=== PATIENT | male | born 1985 | race Caucasian/White ===

== ENCOUNTER 2020-03-28 19:14 | Emergency (ER) | payer OTHER, SELFPAY ==
[2020-03-28 19:34] VITALS: BP 140/90; PULSE 90; RESP 18; TEMP 36.8; O2SAT 100; BMI 20.9
--- NOTE | 2020-03-28 19:47 | ED_ITS ---
HPI - Psych General Chief Complaint: Psychiatric Symptoms Stated Complaint: SUBSTANCE ABUSE Time Seen by Provider: 03/28/20 19:35 Source: patient Mode of arrival: ambulatory Limitations: no limitations History of Present Illness HPI Narrative: Patient brought to the ED because he wants to stop taking drugs. Patient admits to taking PCP, heroin, and Suboxone the same time. Patient reports vague SI. Patient denies any auditory/visual hallucinations. Patient is seeking detox. Related Data Allergies Allergy/AdvReac Type Severity Reaction Status Date / Time No Known Allergies Allergy Unverified 12/03/19 17:03 [No Known Allergies*] Review of Systems Review of Systems: Yes all other systems are reviewed and are negative Constitutional: Constitutional: Reports as per HPI and Reports no additional constitutional complaints Eyes: Eyes: Reports as per HPI and Reports no additional eye complaints ENT: Reports system reviewed and no additional complaints, except as documented and Reports as per HPI Cardiovascular: Cardiovascular: Reports as per HPI and Reports no additional cardiovascular complaints Respiratory: Respiratory: Reports as per HPI and Reports no additional respiratory complaints Gastrointestinal: Gastrointestinal: Reports as per HPI and Reports no additional gastrointestinal complaints Genitourinary: Genitourinary: Reports no additional male genitourinary complaints and Reports as per HPI Musculoskeletal: Musculoskeletal: Reports no additional musculoskeletal complaints and Reports as per HPI Neurologic: Reports system reviewed and no additional complaints, except as do cumented and Reports as per HPI Psychiatric: Psychiatric: Reports no additional psychiatric complaints and Reports as per HPI Comments: Vague SI PMFSH Past Medical History Medical History (Updated 03/28/20 @ 23:40 by JONNA Mejía) Drug abuse Social History Social History Alcohol intake: current Smoking Status: Current every day smoker Use of substances other than those prescribed or required for medical reasons: Yes Substance Use Type: Opiates, Prescription Drugs, Sedatives and Unknown Advance Directives: No Advance Directives Information Provided: Yes Physical Exam Vital Signs: Vital Signs: Last Vital Signs Temp 98.2 F 03/28/20 19:34 Pulse 90 03/28/20 19:34 Resp 18 03/28/20 20:00 BP 140/90 H 03/28/20 19:34 Pulse Ox 100 03/28/20 20:00 Body Mass Index 20.9 Const: General: cooperative, healthy appearing, comfortable, no acute distress, well developed, alert, awake and Physically active Orientation/consciousness: patient oriented x3 HENMT: Head: Yes normal to inspection, Yes No palpable skull fracture present, Yes normocephalic and Yes atraumatic Eyes: General: appearance normal, both eyes and all related structures Neck: Neck: Yes normal visual inspection, Yes full ROM, Yes no lymp hadenopathy, Yes no meningeal signs, Yes trachea midline, Yes supple and No tender Chest: Chest palpation & inspection: normal inspection of the chest and normal palpation of entire chest wall Resp: Effort & Inspection: normal respiratory effort and able to speak in complete sentences Auscultation: clear to auscultation bilaterally Cardio: Jugular venous distension: no JVD Heart sounds: S1 normal heart sound present and S2 normal heart sound present GI: Inspection: Yes normal to inspection and No abdominal wall ecchymosis Palpation (GI): Soft to palpation, not firm, nontender, no guarding and not rigid : General: No CVA tenderness and Yes no CVA tenderness Back/Spine/Pelvis: Back: no CVA tenderness, No CVA tenderness and No back tenderness Skin: General skin exam: no rashes or lesions noted and elasticity normal Neuro: General: patient oriented x3, gait normal, no meningeal signs and CN's II-XI intact bilaterally Cranial nerves: Yes CN's II-XII intact bilaterally Extrem: General: Yes normal to inspection and Yes full ROM Psych: Other: Flat affect with vague SI. Appearance: grossly normal, well kempt and not disheveled Course Course Course Narrative: Patient will have labs drawn and possibly N evaluation or care team consulted for evaluation. Reevaluation(s) Reevaluation #1: Patient labs came back normal and at baseline. Patient evaluated by care team consulted Yuliana. She states patient is safe for discharge and is not suicidal or homicidal. She states patient has a bed for [facility] detox program in the morning. Patient is not suicidal or homicidal presently. Time: 23:37 MDM - Psych MDM Narrative Medical decision making narrative: Poly substance abuse Restraints Face to Face Assessment: Face to Face Assessment: Current Situation: After assessment of the patient, a review of the pertinent medical record and a discussion with nursing staff, I feel the patient requires a restrain intervention. Reaction To: [] Medical Condition: [] Behavioral State: [] Continued Need: [] Lab Data Result diagrams: 03/28/20 19:54 03/28/20 19:54 Labs: Lab Results 03/28/20 03/28/20 03/28/20 Range/Units 19:54 19:54 19:54 WBC 6.2 (4.8-10.8) X10*3/uL RBC 4.59 L (4.60-5.80) X10*6/uL Hgb 14.9 (14.0-18.0) g/dl Hct 44.7 (42-52) % MCV 97.4 (80-98) fL MCH 32.5 (27.0-33.0) pg MCHC 33.3 (31.0-36.0) g/dl RDW 12.7 (11.0-16.0) % Plt Count 240 (160-400) X10*3/uL MPV 10.1 (9.4-12.4) fL Immature Gran % (Auto) 0.2 (0.0-0.4) % Neut % (Auto) 70.8 (45-73) % Lymph % (Auto) 15.3 L (20-40) % [place] % (Auto) 10.8 (2-11) % Eos % (Auto) 2.6 (0-4) % Baso % (Auto) 0.3 (0-2) % Lymph # (Auto) 1.0 L (1.2-4.9) X10*3/uL [place] # (Auto) 0.7 (0.1-1.2) X10*3/uL Eos # (Auto) 0.2 (0.0-0.4) X10*3/uL Baso # (Auto) 0.0 (0.0-0.2) X10*3/uL Abs Immat Gran (auto) 0.01 (0.00-0.03) X10*3/uL Absolute Neuts (auto) 4.4 (2.0-8.3) X10*3/uL Absolute Nucleated RBC 0.000 (0.0-0.012) X10*3/uL Nucleated RBC % (auto) 0.0 (0.0-0.2) /100WBC Sodium 142 (135-145) mmol/L Potassium 4.3 (3.3-5.1) mmol/l Chloride 105 (96-108) mmol/L Carbon Dioxide 28 (22-29) mmol/L Anion Gap 13 (12-20) BUN 16 (9-16) mg/dL Creatinine 1.11 (0.5-1.4) mg/dL Estim Creat Clear Calc 77.4 Estimated GFR > 60 Random Glucose 175 H (60-115) mg/dL Calcium 9.3 (8.4-10.2) mg/dL Total Bilirubin 0.7 (0.0-1.0) mg/dL Direct Bilirubin 0.4 (0.0-0.5) mg/dL AST 35 (5-37) U/L ALT 37 (0-40) U/L Alkaline Phosphatase 64 (39-117) U/L Total Protein 6.8 (6.5-8.0) g/dL Albumin 4.5 (3.5-5.0) g/dL Ethyl Alcohol < 10 mg/dL COVID-19 (ABRIL) (Negative) COVID-19 Clin Com 03/28/20 Range/Units 19:54 WBC (4.8-10.8) X10*3/uL RBC (4.60-5.80) X10*6/uL Hgb (14.0-18.0) g/dl Hct (42-52) % MCV (80-98) fL MCH (27.0-33.0) pg MCHC (31.0-36.0) g/dl RDW (11.0-16.0) % Plt Count (160-400) X10*3/uL MPV (9.4-12.4) fL Immature Gran % (Auto) (0.0-0.4) % Neut % (Auto) (45-73) % Lymph % (Auto) (20-40) % [facility] % (Auto) (2-11) % Eos % (Auto) (0-4) % Baso % (Auto) (0-2) % Lymph # (Auto) (1.2-4.9) X10*3/uL [facility] # (Auto) (0.1-1.2) X10*3/uL Eos # (Auto) (0.0-0.4) X10*3/uL Baso # (Auto) (0.0-0.2) X10*3/uL Abs Immat Gran (auto) (0.00-0.03) X10*3/uL Absolute Neuts (auto) (2.0-8.3) X10*3/uL Absolute Nucleated RBC (0.0-0.012) X10*3/uL Nucleated RBC % (auto) (0.0-0.2) /100WBC Sodium (135-145) mmol/L Potassium (3.3-5.1) mmol/l Chloride (96-108) mmol/L Carbon Dioxide (22-29) mmol/L Anion Gap (12-20) BUN (9-16) mg/dL Creatinine (0.5-1.4) mg/dL Estim Creat Clear Calc Estimated GFR Random Glucose (60-115) mg/dL Calcium (8.4-10.2) mg/dL Total Bilirubin (0.0-1.0) mg/dL Direct Bilirubin (0.0-0.5) mg/dL AST (5-37) U/L ALT (0-40) U/L Alkaline Phosphatase (39-117) U/L Total Protein (6.5-8.0) g/dL Albumin (3.5-5.0) g/dL Ethyl Alcohol mg/dL COVID-19 (ABRIL) Negative (Negative) COVID-19 Clin Com See Note Discharge Plan Discharge Clinical Impression: Substance abuse Patient Disposition: Home, Self-Care Instructions: Polysubstance Abuse (ED) Additional Instructions: Return to the ED immediately for any suicidal/homicidal ideation, auditory/visual hallucinations, any physical complaints, or any other concerning symptoms. [facility]. Interventions: ED Discharge Assessment Last Done: 03/29/20 00:42 Discharge Date/Time: 03/29/20 00:43 Print Language: [place]
[2020-03-28 20:00] VITALS: RESP 18; O2SAT 100
[2020-03-28 20:00] LABS: MANUAL DIFF FLAG NO
[2020-03-28 20:04] LABS: Basophils Percent Auto 0.3 % (0-2); Eosinophils Absolute Auto 0.2 X10*3/uL (0.0-0.4); Eosinophils Percent Auto 2.6 % (0-4); Hematocrit 44.7 % (42-52); Hemoglobin 14.9 g/dl (14.0-18.0); Imm Gran Abs Auto 0.01 X10*3/uL (0.00-0.03); Imm Gran Pct Auto 0.2 % (0.0-0.4); Lymphocytes Percent Auto 15.3 % (20-40); Mean Corpuscular HGB Conc 33.3 g/dl (31.0-36.0); Mean Corpuscular Hemoglobin 32.5 pg (27.0-33.0); Mean Corpuscular Volume 97.4 fL (80-98); Mean Platelet Volume 10.1 fL (9.4-12.4); Monocytes Absolute Auto 0.7 X10*3/uL (0.1-1.2); Monocytes Percent Auto 10.8 % (2-11); Neutrophils Absolute Auto 4.4 X10*3/uL (2.0-8.3); Neutrophils Percent Auto 70.8 % (45-73); Platelet Count 240 X10*3/uL (160-400); Red Blood Count 4.59 X10*6/uL (4.60-5.80); Red Cell Distribution Width 12.7 % (11.0-16.0); White Blood Count 6.2 X10*3/uL (4.8-10.8)
[2020-03-28 20:18] LABS: COVID-19 Test Negative (Negative)
[2020-03-28 20:24] LABS: Ethanol < 10 mg/dL
[2020-03-28 20:28] LABS: Alanine Aminotransferase 37 U/L (0-40); Albumin Level 4.5 g/dL (3.5-5.0); Alkaline Phosphatase 64 U/L (39-117); Anion Gap 13 (12-20); Aspartate Amino Transferase 35 U/L (5-37); Bilirubin Direct 0.4 mg/dL (0.0-0.5); Bilirubin Total 0.7 mg/dL (0.0-1.0); Blood Urea Nitrogen 16 mg/dL (9-16); Calcium 9.3 mg/dL (8.4-10.2); Carbon Dioxide 28 mmol/L (22-29); Chloride 105 mmol/L (96-108); Creatinine Clr Calc Pharmacy 77.4; Estimated Glomerular Filt Rate > 60; Glucose Random 175 mg/dL (60-115); Potassium 4.3 mmol/l (3.3-5.1); Sodium 142 mmol/L (135-145); Total Protein 6.8 g/dL (6.5-8.0)
--- NOTE | 2020-03-28 22:46 | MHC.CARE ---
CARE team support requested by ED Provider for pt that arrived to ED by ambulance endorsing passive suicidal ideation and requesting detox. This conventional underwriter met with pt in ED 6H. Pt denied experiencing thoughts of suicide at this time. Pt reported that he wants to detox off suboxone and to stop PCP and cocaine use. This conventional underwriter contacted [facility], and attempted to contact JAY Hammond, and Louis without success. [facility] recommended that pt call at 8AM to complete phone intake and get on list for a detox bed. This conventional underwriter discussed the plan with pt, who was agreeable for discharge home and follow up with [facility] in the morning. ED provider updated.
== END 2020-03-29 00:43 | disposition home or self-care (01) ==
PROVIDERS: Physician Assistant; Emergency Provider Emergency Medicine; PCP Internal Medicine
DX: F19.10 Other psychoactive substance abuse, uncomplicated (principal); Z20.828 Contact with and (suspected) exposure to other viral communicable diseases; F17.200 Nicotine dependence, unspecified, uncomplicated
CPT/HCPCS: 36415; 80053; 80076; 80320; 82248; 85025; 87635; 99284; 99285

== ENCOUNTER 2020-05-22 08:06 | Emergency (ER) | payer OTHER, SELFPAY ==
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
[2020-05-22 08:19] VITALS: BP 110/77; PULSE 81; RESP 16; O2SAT 100; BMI 18.3
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
[2020-05-22 10:52] LABS: MANUAL DIFF FLAG NO
[2020-05-22] MEDS: fentaNYL citrate/PF 100 MCG/2 ML VIAL 25 MCG IVPUSH ×2 (10:53→12:15)
[2020-05-22 10:55] LABS: Basophils Percent Auto 0.2 % (0-2); Eosinophils Percent Auto 0.1 % (0-4); Hematocrit 42.9 % (42-52); Hemoglobin 14.5 g/dl (14.0-18.0); Imm Gran Abs Auto 0.12 X10*3/uL (0.00-0.03); Imm Gran Pct Auto 0.7 % (0.0-0.4); Lymphocytes Absolute Auto 0.9 X10*3/uL (1.2-4.9); Lymphocytes Percent Auto 5.2 % (20-40); Mean Corpuscular HGB Conc 33.8 g/dl (31.0-36.0); Mean Corpuscular Volume 97.7 fL (80-98); Mean Platelet Volume 9.5 fL (9.4-12.4); Monocytes Absolute Auto 0.9 X10*3/uL (0.1-1.2); Monocytes Percent Auto 5.5 % (2-11); Neutrophils Absolute Auto 15.2 X10*3/uL (2.0-8.3); Neutrophils Percent Auto 88.3 % (45-73); Platelet Count 288 X10*3/uL (160-400); Red Blood Count 4.39 X10*6/uL (4.60-5.80); Red Cell Distribution Width 12.7 % (11.0-16.0); White Blood Count 17.2 X10*3/uL (4.8-10.8)
[2020-05-22 11:09] LABS: Partial Thromboplastin Time 27.6 SEC (24.1-38.0)
[2020-05-22 11:16] LABS: Anion Gap 14 (12-20); Blood Urea Nitrogen 21 mg/dL (9-16); Calcium 9.2 mg/dL (8.4-10.2); Carbon Dioxide 28 mmol/L (22-29); Chloride 109 mmol/L (96-108); Creatinine Clr Calc Pharmacy 86.3; Estimated Glomerular Filt Rate > 60; Glucose Random 102 mg/dL (60-115); Sodium 146 mmol/L (135-145)
[2020-05-22 11:24] LABS: Ethanol < 10 mg/dL
[2020-05-22 11:27] LABS: Alanine Aminotransferase 34 U/L (0-40); Albumin Level 4.3 g/dL (3.5-5.0); Alkaline Phosphatase 88 U/L (39-117); Aspartate Amino Transferase 33 U/L (5-37); Bilirubin Direct 0.3 mg/dL (0.0-0.5); Bilirubin Total 0.8 mg/dL (0.0-1.0); Total Protein 6.6 g/dL (6.5-8.0)
[2020-05-22 11:28] LABS: Lipase 27 U/L (8-78)
[2020-05-22 11:37] LABS: Acetaminophen LAB < 1 mcg/mL (<30); Salicylate < 5.0 mg/dL (15-30)
[2020-05-22] MEDS: iohexoL 350 MG/ML 75 ML INFUS..BTL IV (11:54)
[2020-05-22] MEDS: 0.9 % Sodium Chloride 1,000 ML 999 ML IVCONT (12:15)
[2020-05-22 12:56] VITALS: BP 117/67; PULSE 90; RESP 16; O2SAT 98
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
--- NOTE | 2020-05-22 13:15 | PC.NURSE ---
report given to linus raphael at [facility]
[2020-05-22 13:26] LABS: COVID-19 Test Negative (Negative)
[2020-05-22 13:29] LABS: Amphetamine Screen Urine Not Detected (Not Detect); Barbiturates, Urine Not Detected (Not Detect); Benzodiazepines Screen Urine POSITIVE (Not Detect); Cannabinoid Screen Urine POSITIVE (Not Detect); Cocaine Screen Urine POSITIVE (Not Detect); Opiate Screen Urine Not Detected (Not Detect); Phencyclidine Screen Urine POSITIVE (Not Detect)
--- NOTE | 2020-05-22 13:31 | PC.NURSE ---
report given to linus raphael [facility]
== END 2020-05-22 13:33 | disposition other institution (70) ==
PROVIDERS: Physician Assistant; Emergency Provider Emergency Medicine
DX: S32.401A Unspecified fracture of right acetabulum, initial encounter for closed fracture (principal); S32.591A Other specified fracture of right pubis, initial encounter for closed fracture; M25.551 Pain in right hip; G44.309 Post-traumatic headache, unspecified, not intractable; F12.90 Cannabis use, unspecified, uncomplicated; V43.52XA Car driver injured in collision with other type car in traffic accident, initial encounter; Y93.9 Activity, unspecified; Y92.410 Unspecified street and highway as the place of occurrence of the external cause; Y99.9 Unspecified external cause status; F17.200 Nicotine dependence, unspecified, uncomplicated; Z20.822 Contact with and (suspected) exposure to COVID-19; Z71.6 Tobacco abuse counseling
CPT/HCPCS: 36415; 70450; 70486; 71260; 72125; 72170; 72192; 73552; 74177; 80048; 80076; 80143; 80179; 80307; 80320; 83690; 85025; 85610; 85730; 87635; 90471; 90715; 96361; 96365; 96375; 99284; J3010; Q9967

== ENCOUNTER 2020-06-21 19:28 | Inpatient (IN) | payer OTHER, SELFPAY ==
[2020-06-21 19:43] VITALS: BP 141/80; PULSE 106; RESP 16; TEMP 37.4; O2SAT 96; BMI 17.2
[2020-06-21 20:42] LABS: COVID-19 Test Negative (Negative)
--- NOTE | 2020-06-21 20:48 | PC.NURSE ---
JAY faxed/called/spoke with Linh/confirmed receipt of referral.
[2020-06-21 20:51] LABS: MANUAL DIFF FLAG NO
[2020-06-21 21:01] LABS: Basophils Percent Auto 0.3 % (0-2); Eosinophils Absolute Auto 0.1 X10*3/uL (0.0-0.4); Eosinophils Percent Auto 1.3 % (0-4); Hematocrit 46.7 % (42-52); Hemoglobin 15.9 g/dl (14.0-18.0); Imm Gran Abs Auto 0.06 X10*3/uL (0.00-0.03); Imm Gran Pct Auto 0.6 % (0.0-0.4); Lymphocytes Absolute Auto 3.3 X10*3/uL (1.2-4.9); Mean Corpuscular Hemoglobin 33.8 pg (27.0-33.0); Mean Corpuscular Volume 99.4 fL (80-98); Mean Platelet Volume 9.7 fL (9.4-12.4); Monocytes Absolute Auto 0.9 X10*3/uL (0.1-1.2); Monocytes Percent Auto 9.1 % (2-11); Neutrophils Absolute Auto 5.6 X10*3/uL (2.0-8.3); Neutrophils Percent Auto 55.7 % (45-73); Platelet Count 274 X10*3/uL (160-400); White Blood Count 10.1 X10*3/uL (4.8-10.8)
[2020-06-21 21:05] LABS: INTERNATIONAL NORM RATIO 1.1 (0.9-1.1); Prothrombin Time 12.6 SEC (10.8-13.0)
[2020-06-21 21:08] LABS: Partial Thromboplastin Time 36.1 SEC (24.1-38.0)
[2020-06-21 21:20] LABS: Ethanol < 10 mg/dL
[2020-06-21 21:29] LABS: Alanine Aminotransferase 96 U/L (0-40); Alkaline Phosphatase 148 U/L (39-117); Anion Gap 17 (12-20); Aspartate Amino Transferase 38 U/L (5-37); Blood Urea Nitrogen 14 mg/dL (9-16); Calcium 10.2 mg/dL (8.4-10.2); Carbon Dioxide 26 mmol/L (22-29); Chloride 105 mmol/L (96-108); Creatinine Clr Calc Pharmacy 80.9; Estimated Glomerular Filt Rate > 60; Glucose Random 98 mg/dL (60-115); Potassium 4.2 mmol/L (3.3-5.1); Sodium 144 mmol/L (135-145); Total Protein 8.1 g/dL (6.5-8.0)
--- NOTE | 2020-06-21 21:30 | PC.NURSE ---
Patient is severely upset, frustrated, and agitated over being here ED POD, patient thinks it is us who is keeping him here against his will, patient made aware of how he got here in ED, explained section 12. Despite that patient refused to listen, demanding discharge, loud and disruptive at time, exit seeking few times, security came for support, refused pain medication and any other medication to calm him down, will continue to monitor.
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
[2020-06-22 00:15] VITALS: BP 130/69; PULSE 118; RESP 16; TEMP 36.9; O2SAT 97
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
[2020-06-22] MEDS: diphenhydrAMINE HCL 25 MG TABLET 50 MG PO (01:32)
[2020-06-22] MEDS: LORazepam 1 MG TABLET 2 MG PO (01:32)
[2020-06-22] MEDS: HaloperidoL 5 MG TABLET PO (01:32)
--- NOTE | 2020-06-22 01:37 | PC.NURSE ---
Patient just got seen by the N, per N patient is not safe to himself at this time, disposition section 12 inpatient bed search, provider and patient made aware, patient did not respond well to the news, offered medication to calm and deescalate/accepted Haldol mg tablet, Ativan 2 mg tablet, and Benadryl 50 mg tablet as ordered, patient is currently sitting in milieu seems upset, will continue to monitor.
[2020-06-22] MEDS: oxyCODONE HCl Immed Release 5 MG TABLET PO ×3 (05:12→18:18)
--- NOTE | 2020-06-22 05:16 | PC.NURSE ---
Patient reported pain 8/10 on right hip, provider notified/ordered verbal order of Oxycodone 5 mg, order entered as ordered, read back, approved, administered as ordered, patient compliant. will continue to monitor.
[2020-06-22 09:20] VITALS: BP 107/68; PULSE 78; RESP 18; TEMP 36.8; O2SAT 97
--- NOTE | 2020-06-22 15:13 | PC.NURSE ---
Report received. Pt sitting in the common area. Calm and cooperative. Continues to be a section 12 bed search.
--- NOTE | 2020-06-22 17:03 | PC.NURSE ---
Pt asleep at current. No signs of distress. RR even and unlabored.
[2020-06-22] MEDS: Apixaban 5 MG TABLET PO ×2 (18:50→20:51)
[2020-06-22] MEDS: Docusate Sodium 100 MG CAPSULE PO (20:52)
[2020-06-23 00:08] VITALS: BP 137/68; PULSE 97; RESP 18; TEMP 36.4; O2SAT 99
[2020-06-23] MEDS: oxyCODONE HCl Immed Release 5 MG TABLET PO ×4 (00:46→18:33)
--- NOTE | 2020-06-23 02:00 | PC.NURSE ---
Patient just woke up reported right hip pain 8/, offered PRN Oxycodone 5 mg/accepted, pending effect, will continue to monitor.
--- NOTE | 2020-06-23 06:59 | PC.NURSE ---
Report recieved. PT currently eating breakfast, calm and cooperative. Pt is inpatient bedsearch.
[2020-06-23] MEDS: Docusate Sodium 100 MG CAPSULE PO (09:02)
[2020-06-23] MEDS: Apixaban 5 MG TABLET PO ×2 (09:03→20:47)
[2020-06-23 09:16] VITALS: RESP 18
[2020-06-23] MEDS: oxyCODONE HCl ER 10 MG TAB.ER.12H PO ×2 (09:36→20:48)
--- NOTE | 2020-06-23 09:49 | PC.NURSE ---
Late Entry: PT asking to leave, plan of care explained. PT aware that he has been accepted to for later today. PT irritable, demanded to speak with provider for discharge. Section 12 explained. Provider in to speak with PT, explained plan of care again. Pt reported he is still in a lot of pain. Pt medicated per emar, currently resting.
--- NOTE | 2020-06-23 13:42 | PC.NURSE ---
Addendum entered by Chary Angulo 06/23/20 14:01: Verbal reassurance given once PT off the phone, pt continues to be agitated, states he just wants to get out of here, offered PRN medication, PT laughed and walked away from this RN. Remaining in behavioral control, sitting quietly in common area at this time. Original Note: PT agitated, on the phone yelling, threatening to irineo everybody in here . Yelling that he needs to get the fuck out of here . PT repeating himself several times threatening to irineo people.
[2020-06-23 16:15] VITALS: RESP 16
--- NOTE | 2020-06-23 18:56 | PC.NURSE ---
Nurse to nurse completed with Hector from [facility].
--- NOTE | 2020-06-23 19:15 | PC.NURSE ---
Report received. PT is speaking with [facility]. Agitated and yelling but PT is agreeing to go to [facility].
--- NOTE | 2020-06-23 19:56 | PC.NURSE ---
Patient is restless and agitated. Does not feel he needs to be in the hospital. Signed CV. Offered 3day notice and signed. Offered form to call [facility] and accepted form but added ''this is all about money, I do not need to be here'' ''I will get my own implementation project coordinator''
[2020-06-23 20:10] VITALS: BP 109/67; PULSE 81; TEMP 37.1
[2020-06-23] MEDS: Acetaminophen 325 MG TABLET 650 MG PO (20:45)
[2020-06-23] MEDS: traZODone HCL 50 MG TABLET PO (23:28)
[2020-06-23] MEDS: hydrOXYzine HCL 25 MG TABLET PO (23:28)
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
[2020-06-24 01:55] VITALS: BMI 17.2
[2020-06-24] MEDS: oxyCODONE HCl ER 10 MG TAB.ER.12H PO (05:01)
[2020-06-24 05:05] VITALS: BP 111/73; PULSE 69; RESP 16; TEMP 36.4; O2SAT 99
[2020-06-24 08:31] LABS: MANUAL DIFF FLAG NO
[2020-06-24 08:36] LABS: Basophils Percent Auto 0.5 % (0-2); Eosinophils Absolute Auto 0.1 X10*3/uL (0.0-0.4); Eosinophils Percent Auto 2.4 % (0-4); Hematocrit 47.1 % (42-52); Hemoglobin 15.7 g/dl (14.0-18.0); Imm Gran Abs Auto 0.03 X10*3/uL (0.00-0.03); Imm Gran Pct Auto 0.5 % (0.0-0.4); Lymphocytes Absolute Auto 2.7 X10*3/uL (1.2-4.9); Lymphocytes Percent Auto 44.8 % (20-40); Mean Corpuscular HGB Conc 33.3 g/dl (31.0-36.0); Mean Corpuscular Hemoglobin 32.6 pg (27.0-33.0); Mean Corpuscular Volume 97.9 fL (80-98); Mean Platelet Volume 9.8 fL (9.4-12.4); Monocytes Absolute Auto 0.6 X10*3/uL (0.1-1.2); Monocytes Percent Auto 9.8 % (2-11); Neutrophils Absolute Auto 2.5 X10*3/uL (2.0-8.3); Platelet Count 254 X10*3/uL (160-400); Red Blood Count 4.81 X10*6/uL (4.60-5.80); Red Cell Distribution Width 12.6 % (11.0-16.0); White Blood Count 5.9 X10*3/uL (4.8-10.8)
[2020-06-24] MEDS: Apixaban 5 MG TABLET PO (08:40)
[2020-06-24] MEDS: oxyCODONE HCl Immed Release 5 MG TABLET PO ×2 (08:54→15:58)
[2020-06-24 09:19] LABS: Alanine Aminotransferase 64 U/L (0-40); Albumin Level 4.8 g/dL (3.5-5.0); Alkaline Phosphatase 132 U/L (39-117); Anion Gap 14 (12-20); Aspartate Amino Transferase 22 U/L (5-37); Bilirubin Direct 0.4 mg/dL (0.0-0.5); Bilirubin Total 1.3 mg/dL (0.0-1.0); Blood Urea Nitrogen 20 mg/dL (9-16); Calcium 9.8 mg/dL (8.4-10.2); Carbon Dioxide 30 mmol/L (22-29); Chloride 101 mmol/L (96-108); Creatinine Clr Calc Pharmacy 92.3; Estimated Glomerular Filt Rate > 60; Glucose Fasting 89 mg/dL (60-99); Potassium 4.2 mmol/L (3.3-5.1); Sodium 141 mmol/L (135-145); Total Protein 7.6 g/dL (6.5-8.0)
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
== END 2020-06-24 17:50 | disposition home or self-care (01) | DRG 754 ==
LOC: HO.ED 06-23 11:14 → HO.PM5 06-23 17:23
PROVIDERS: Physician Assistant; Admitting Provider Clinical Nurse Specialist Psychiatric/Mental Health; Emergency Provider Emergency Medicine Emergency Medical Services; Visit Provider Clinical Nurse Specialist Psychiatric/Mental Health, Adult
DX: F32.9 Major depressive disorder, single episode, unspecified (principal); R45.851 Suicidal ideations; F17.210 Nicotine dependence, cigarettes, uncomplicated; M25.551 Pain in right hip; Z20.822 Contact with and (suspected) exposure to COVID-19; Z71.6 Tobacco abuse counseling; F19.10 Other psychoactive substance abuse, uncomplicated
CPT/HCPCS: 36415; 80053; 80076; 80320; 85025; 85610; 85730; 87635; 99285; Q0163

== ENCOUNTER 2022-06-12 14:23 | Emergency (ER) | payer OTHER, SELFPAY ==
--- NOTE | 2022-06-12 15:03 | ED_ITS ---
HPI - Eye Problem General Chief complaint: Eye Problems <JONNA Gross - Last Filed: 06/12/22 15:17> Stated complaint: FO in R eye <JONNA Gross - Last Filed: 06/12/22 15:17> Time Seen by Provider: 06/12/22 15:43 <JONNA Gross - Last Filed: 06/12/22 15:17> Source: patient and RN notes reviewed <Josh Lanier - Last Filed: 06/12/22 20:46> Mode of arrival: ambulatory <Josh Lanier - Last Filed: 06/12/22 20:46> Limitations: no limitations <Josh Lanier - Last Filed: 06/12/22 20:46> History of Present Illness HPI Narrative: 36-year-old male presents for evaluation of red, itchy eye. He believes he may have gotten something in his eye because his entire right eye is red. He has watery discharge that he states ?it is thicker and pus-like. ? Patient denies any blurry vision. He states ?yesterday I was moving boxes around and I thought maybe I got something in my eye. ? He states is I did not bother him until several hours after he was moving things around He denies working with metal or welding at all Denies any blurry vision <Josh Lanier - Last Filed: 06/12/22 20:46> Related Data Home medications: Home Medications Medication Instructions Recorded Confirmed apixaban 5 mg (74 tabs) tablets in 5 mg PO BID 06/21/20 06/21/20 a dose pack (CorasWorks DVT-PE Treat 30D Start) docusate sodium 100 mg capsule 1 cap PO BID 06/21/20 06/21/20 (Stool Softener) oxycodone 5 mg tablet 1 tab PO TID PRN pain 06/21/20 06/21/20 Previous Rx's Medication Instructions Recorded erythromycin 5 mg/gram (0.5 %) eye 1 appl ophthalmic (eye) DAILY 5 06/12/22 ointment days #3.5 grams <JONNA Gross - Last Filed: 06/12/22 15:17> Allergies/adverse reactions: Allergies Allergy/AdvReac Type Severity Reaction Status Date / Time No Known Allergies Allergy Unverified 12/03/19 17:03 [No Known Allergies*] <JONNA Gross - Last Filed: 06/12/22 15:17> Review of Systems Eyes: Eyes: Denies blurry vision, Reports eye discharge, Reports irritation, Reports itchy eyes and Reports eye pain <Josh Lanier - Last Filed: 06/12/22 20:46> Allergic/Immunologic: Allergic/Immunologic: Reports itchy eyes <Josh Lanier - Last Filed: 06/12/22 20:46> [facility] Past Medical History Medical History: Medical History (Updated 06/12/22 @ 16:05 by Josh Lanier) Drug abuse Polysubstance abuse <JONNA Gross - Last Filed: 06/12/22 15:17> Social History Social History: Social History Household Members: None Housing: Apartment Do you presently have visiting nurse or other home services: No Unable to assess alcohol history related to: Unknown and Refusing to respond Alcohol intake: current Alcohol intake frequency: holidays/special occasions only Substance Use Type: Amphetamines, Crack/Cocaine, Marijuana, Opiates and Other Advance Directives: No Advance Directives Information Provided: No service: No Sexual orientation: Straight/Heterosexual <JONNA Gross - Last Filed: 06/12/22 15:17> Physical Exam Vital Signs: Vital Signs: Last Vital Signs Temp 98.0 F 06/12/22 15:09 Pulse 73 06/12/22 15:09 Resp 18 06/12/22 15:09 BP 111/66 06/12/22 15:09 Pulse Ox 99 06/12/22 15:09 O2 Del Method Room Air 06/12/22 15:09 BMI result Body Mass Index 18.2 <JONNA Gross - Last Filed: 06/12/22 15:17> Vital Signs: Last Vital Signs Temp 98.0 F 06/12/22 15:09 Pulse 73 06/12/22 15:09 Resp 18 06/12/22 15:09 BP 111/66 06/12/22 15:09 Pulse Ox 99 06/12/22 15:09 O2 Del Method Room Air 06/12/22 15:09 BMI result Body Mass Index 18.2 <Josh Lanier - Last Filed: 06/12/22 20:46> Const: General: healthy appearing, comfortable, no acute distress, alert and awake <Josh Last Filed: 06/12/22 20:46> Nutritional Appearance: well nourished < Last Filed: 06/12/22 20:46> Orientation/consciousness: patient oriented x3 < Last Filed: 06/12/22 20:46> HEENT: Head: Yes normocephalic and Yes atraumatic < Last Filed: 06/12/22 20:46> Throat: Yes posterior oropharynx normal < Last Filed: 06/12/22 20:46> Eyes: Other: No obvious foreign body noted on right No fluorescein uptake on right < Last Filed: 06/12/22 20:46> Eyelids: Yes eyelids normal < Last Filed: 06/12/22 20:46> Conjunctivae: conjunctival abnormal (Right conjunctiva is injected) < Last Filed: 06/12/22 20:46> Corneas: corneas normal < Last Filed: 06/12/22 20:46> Pupils: Equal, round and reactive pupils present < Last Filed: 06/12/22 20:46> EOM: EOMs intact bilaterally < Last Filed: 06/12/22 20:46> Neck: Neck: Yes full ROM < Last Filed: 06/12/22 20:46> Resp: Effort & Inspection: normal respiratory effort, able to speak in complete sentences, no audible wheezes and not labored < Last Filed: 06/12/22 20:46> Auscultation: clear to auscultation bilaterally < Last Filed: 06/12/22 20:46> Cardio: Rate: regular rate < Last Filed: 06/12/22 20:46> Rhythm: regular rhythm < Last Filed: 06/12/22 20:46> GI: Inspection: No distended <Josh Manzano Last Filed: 06/12/22 20:46> Palpation (GI): Soft to palpation, not firm, nontender, no guarding and not rigid <Josh Manzanoy - Last Filed: 06/12/22 20:46> Auscultation: normoactive bowel sounds <Josh Manzanoy - Last Filed: 06/12/22 20:46> Skin: General skin exam: no rashes or lesions noted and elasticity normal <Joshramses Manzano Last Filed: 06/12/22 20:46> Neuro: General: patient oriented x3 <Joshramses Manzano Last Filed: 06/12/22 20:46> Cranial nerves: Yes CN's II-XII intact bilaterally, Yes Equal, round and reactive pupils present and Yes Bilaterally intact EOM present <Joshramses Manzano Last Filed: 06/12/22 20:46> Cognition (Neuro): normal cognition <Josh Manzanoy - Last Filed: 06/12/22 20:46> Course Course Course Narrative: RME-15:10PM - 36yoM reports that he was cleaning around his house yesterday and feels like he has a foreign body in his right eye. Reports that he has been having some purulent discharge from the right eye. Has been using [id number] eyedrops. Denies any fevers. Reports he is up-to-date on tetanus. Denies blurry vision or any other symptoms complaints or concerns at this time. Plan: Erythromycin, tetracaine drops and fluorescein strips ordered patient to be seen in [facility]. <JONNA Gross - Last Filed: 06/12/22 15:17> Medications Administered Discontinued Medications Generic Name Dose Route Start Last Admin Trade Name Emili PRN Reason Stop Dose Admin Erythromycin 1 cm 06/12/22 15:11 06/12/22 16:02 Erythromycin Base 0.5% Oph Oin 1 Gm Tube EYE-RIGHT 06/12/22 15:12 1 cm ONCE ONE Administration Fluorescein Sodium 1 strip 06/12/22 15:11 06/12/22 16:03 Fluorescein Sodium Strip EYE-BOTH 06/12/22 15:12 1 strip ONCE ONE Administration Tetracaine HCl 3 drop 06/12/22 15:11 06/12/22 16:03 Tetracaine Hcl/Pf 0.5% Oph Madonna 4 Ml Drops EYE-BOTH 06/12/22 15:12 3 drop ONCE ONE Administration <JONNA Gross - Last Filed: 06/12/22 15:17> Medications Administered Discontinued Medications Generic Name Dose Route Start Last Admin Trade Name Emili PRN Reason Stop Dose Admin Erythromycin 1 cm 06/12/22 15:11 06/12/22 16:02 Erythromycin Base 0.5% Oph Oin 1 Gm Tube EYE-RIGHT 06/12/22 15:12 1 cm ONCE ONE Administration Fluorescein Sodium 1 strip 06/12/22 15:11 06/12/22 16:03 Fluorescein Sodium Strip EYE-BOTH 06/12/22 15:12 1 strip ONCE ONE Administration Tetracaine HCl 3 drop 06/12/22 15:11 06/12/22 16:03 Tetracaine Hcl/Pf 0.5% Oph [place] 4 Ml Drops EYE-BOTH 06/12/22 15:12 3 drop ONCE ONE Administration <Josh Lanier - Last Filed: 06/12/22 20:46> Medical Decision Making Medical Decision Making MDM Narrative: 36-year-old male presents for evaluation of red, itchy eye with purulent discharge. Consistent with typical conjunctivitis. Patient has no obvious foreign body on exam, no corneal abrasion. His visual acuity is 20/20 on the right, 20/15 on the left. <Josh Lanier - Last Filed: 06/12/22 20:46> Differential Diagnosis Conjunctivitis Foreign body Corneal abrasion Eye pain Allergies <Josh Lanier - Last Filed: 06/12/22 20:46> Discharge Plan Discharge Clinical Impression: Bacterial conjunctivitis <JONNA Gross - Last Filed: 06/12/22 15:17> Patient Disposition: Home, Self-Care <JONNA Gross - Last Filed: 06/12/22 15:17> Instructions: Conjunctivitis (ED) <JONNA Gross - Last Filed: 06/12/22 15:17> Additional Instructions: You have pinkeye in your right eye. This is very contagious. Wash her hands frequently. Use erythromycin ointment 3 times a day for the next 5 days Return for new or worsening symptoms <JONNA Gross - Last Filed: 06/12/22 15:17> Prescriptions: New erythromycin 5 mg/gram (0.5 %) ointment 1 appl ophthalmic (eye) DAILY 5 Days Qty: 3.5 0RF No Action docusate sodium [Stool Softener] 100 mg capsule 1 cap PO BID oxycodone 5 mg tablet 1 tab PO TID PRN (Reason: pain) Eliquis DVT-PE Treat 30D Start 5 mg (74 tabs) tablets,dose pack 5 mg PO BID <JONNA Gross - Last Filed: 06/12/22 15:17> Interventions: ED Discharge Assessment Last Done: 06/12/22 16:23 <JONNA Gross - Last Filed: 06/12/22 15:17> Discharge Date/Time: 06/12/22 16:24 <JONNA Gross - Last Filed: 06/12/22 15:17>
[2022-06-12 15:09] VITALS: BP 111/66; PULSE 73; RESP 18; TEMP 36.7; O2SAT 99; BMI 18.2
[2022-06-12] MEDS: Erythromycin Base 0.5% Oph Oin 1 GM TUBE 1 CM EYE-RIGHT (16:02)
[2022-06-12] MEDS: Fluorescein Sodium STRIP 1 STRIP EYE-BOTH (16:03)
[2022-06-12] MEDS: Tetracaine HCl/PF 0.5% Oph Sol 4 ML DROPS 3 DROP EYE-BOTH (16:03)
== END 2022-06-12 16:24 | disposition home or self-care (01) ==
PROVIDERS: Emergency Provider Student in an Organized Health Care Education/Training Program
DX: H10.021 Other mucopurulent conjunctivitis, right eye (principal); F19.10 Other psychoactive substance abuse, uncomplicated; Z79.01 Long term (current) use of anticoagulants; Z79.899 Other long term (current) drug therapy
CPT/HCPCS: 99282; 99283

== ENCOUNTER 2023-01-08 17:16 | Emergency (ER) | payer SELFPAY ==
--- NOTE | ~2023-01-08 | CT_ITS ---
EXAMINATION: CT ABDOMEN AND PELVIS WITH CONTRAST CLINICAL INFORMATION: Hematochezia, diarrhea, lower abdominal pain COMPARISON: 05/22/2020 TECHNIQUE: Multidetector volumetric images were obtained from the superior aspect of the liver through the pubic symphysis following administration 85 mL of Omnipaque 350 intravenous contrast. Sagittal and coronal reformatted images were obtained on the technologist's workstation. Oral contrast: No This CT examination was performed using dose optimization techniques as appropriate, variously including the following: *Automated exposure control *Adjustment of mA and/or kV according to patient size (this includes techniques or standardized protocols for targeted exams where dose is matched to indication/reason for exam; i.e. extremities or head) *Use of iterative reconstruction technique DLP: 263 mGy-cm FINDINGS: LUNG BASES: The visualized lung bases are unremarkable. LIVER, GALLBLADDER, AND BILIARY TREE: The liver is normal in size, shape, and attenuation. No focal hepatic lesion or biliary ductal dilatation is present. The gallbladder is unremarkable. PANCREAS: Unremarkable. SPLEEN: Unremarkable. ADRENAL GLANDS: Unremarkable. KIDNEYS AND URETERS: Bilateral nephrograms are symmetric. No hydronephrosis or obstructing calculus identified. BLADDER: Mildly distended and grossly unremarkable. GASTROINTESTINAL TRACT: No evidence of bowel obstruction. There is a thick-walled appearance of the distal sigmoid colon and rectum, suspicious for colitis/proctitis. Questionable additional wall thickening in the proximal ascending colon. Appendix appears nondilated. No free fluid or free air is seen. ABDOMINAL WALL: No significant hernia is appreciated. LYMPH NODES: Normal. VASCULAR: Unremarkable. PELVIC VISCERA: Unremarkable. OSSEOUS STRUCTURES: Unremarkable. CT/CT abdomen pelvis w IV con IMPRESSION: Thick-walled appearance of the distal sigmoid colon and rectum, suspicious for colitis/proctitis. Questionable additional wall thickening in the proximal ascending colon.
[2023-01-08 17:24] VITALS: BP 144/70; PULSE 88; RESP 20; TEMP 37; O2SAT 98; BMI 18.5
--- NOTE | 2023-01-08 17:24 | ED.ABDPAIN ---
HPI - Abdominal Pain General Chief Complaint: Nausea/Vomiting/Diarrhea Stated Complaint: abdominal pain Time Seen by Provider: 01/08/23 23:03 Source: patient Mode of arrival: ambulatory Limitations: no limitations History of Present Illness HPI narrative: Patient is a 37-year-old male who presents emergency department for evaluation of abdominal pain and bright red blood per rectum. He reports for 1 week he has been experiencing midline lower abdominal pain described as stabbing pain that is exacerbated with bowel movement and multiple episodes of diarrhea, notable bright red blood per rectum only with movements. Denies straining. Denies recent constipation. When he is not having and movement he does have a dull aching pain to the mid lower abdomen. It is any time that he consumes solid foods he states that he vomits soon after and then develops the diarrhea. He denies fevers but does endorse chills. Denies baseline of nausea. Denies chest pain, shortness of breath, genitourinary symptoms, history of hemorrhoids. He reports a history of colitis in 2017 for which he was treated with oral antibiotics and has had no further complication. He denies any known sick contacts. He has recently not been hospitalized, underwent any surgical procedures, or been on antibiotics. Related Data Home Medications Medication Instructions Recorded Confirmed apixaban 5 mg (74 tabs) tablets in 5 mg PO BID 06/21/20 06/21/20 a dose pack (General Fusion DVT-PE Treat 30D Start) docusate sodium 100 mg capsule 1 cap PO BID 06/21/20 06/21/20 (Stool Softener) oxycodone 5 mg tablet 1 tab PO TID PRN pain 06/21/20 06/21/20 Previous Rx's Medication Instructions Recorded erythromycin 5 mg/gram (0.5 %) eye 1 appl ophthalmic (eye) DAILY 5 06/12/22 ointment days #3.5 grams ciprofloxacin HCl 500 mg tablet 500 mg PO BID #14 tabs 01/09/23 metronidazole 500 mg tablet 500 mg PO TID 7 days #21 tabs 01/09/23 Allergies Allergy/AdvReac Type Severity Reaction Status Date / Time No Known Allergies Allergy Unverified 01/02/23 12:19 [No Known Allergies*] Review of Systems Review of Systems Yes all other systems are reviewed and are negative PMFSH Past Medical History Attestation statement: The following information was validated with the patient. Source: old records reviewed Medical History Polysubstance abuse Drug abuse Social History Social History (System 01/02/23 @ 12:19 by Elodia Gonzalez) Household Members: None Housing: Apartment Do you presently have visiting nurse or other home services: No Unable to assess alcohol history related to: Unknown and Refusing to respond Alcohol intake: current Alcohol intake frequency: holidays/special occasions only Smoked in Last 30 Days: Yes Use of substances other than those prescribed or required for medical reasons: Yes Substance Use Type: Marijuana Substance Use Frequency: Occasionally Last Used Substance: Days (ago) Advance Directives: No Advance Directives Information Provided: No service: No Sexual orientation: Straight/Heterosexual Physical Exam ED Vital Signs: Vital Signs - 24 hr 01/08/23 17:24 01/08/23 20:37 01/08/23 22:51 Temperature 98.6 F 98.0 F 98.2 F Pulse Rate 88 67 72 Respiratory Rate 20 16 18 Blood Pressure 144/70 H 107/71 120/75 Pulse Oximetry 98 99 99 Oxygen Delivery Method Room Air Room Air Room Air BMI result Body Mass Index 18.5 Appearance: Alert.?Oriented to person, place and time. No acute distress.?Normal affect. Neck: Normal inspection.? Neck supple.?? CVS: Heart sounds normal. Normal heart rate and rhythm.? Pulses normal.?? Respiratory: No respiratory distress.? Lung sounds clear to auscultation bilaterally?? Abdomen: Soft with diffuse lower abdominal tenderness upon palpation, no rigidity, no guarding. No CVA tenderness. Normoactive bowel sounds. .?? Skin: Skin warm and dry.? Normal skin color.? Extremities: No lower extremity edema.? Neuro: Moves all extremities spontaneously. Sensation intact bilaterally. No focal neuro deficits. Ambulates with normal steady gait. Course Course Course Narrative: This is a rapid medical exam. Deferred additional HPI, ROS, PE to primary provider. 37 yo male with history of colitis here with complaints of lower abdominal pain, diarrhea, rectal bleeding x 1 week. Will obtain labs, UA VSS Reevaluation(s) Reevaluation #1: Occult stool was positive. CT revealing thickened appearance of the distal sigmoid colon rectum suspicious for colitis/proctitis and questionable additional wall thickening in the proximal ascending colon. Patient denies any known history of inflammatory bowel disease. At this time will cover with Nelli and Regino for possible bacterial etiology, provided with contact information for Gastroenterology Department for outpatient follow-up. Reviewed worrisome signs and symptoms that would warrant re-evaluation in the emergency department. All questions were answered. Stable for discharge. Time: 01:34 Medical Decision Making Medical Decision Making MDM Narrative: Patient is a 37-year-old male presents emergency department for evaluation of abdominal pain and hematochezia as per HPI. At the time my examination he is overall well-appearing, nontoxic, afebrile, without tachycardia or respiratory distress. Abdominal examination notable for diffuse lower abdominal tenderness upon palpation, does not appear to be in significant discomfort, there is no rigidity or guarding. 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 Patient declines to have digital rectal examination performed for occult stool sampling. He was able to have a very small bowel movement for which she provided a stool sample, there is notably bright red blood in the mucus the appearance, likely an insufficient amount for GI panel/C diff testing but will send to the lab nonetheless. Discussed plan of care with patient he is agreeable; Will obtain CBC to evaluate for leukocytosis/ anemia, CMP and lipase to evaluate for abnormal electrolytes /abnormal renal function/ abnormal hepatic/biliary function, CT of the abdomen and pelvis for evaluation of diverticulitis, colitis, bowel obstruction, less likely appendicitis, cholecystitis, pancreatitis, enteritis and will obtain Urinalysis. Differential Diagnosis Differential Diagnoses: The differential diagnosis associated with the presentation includes (As noted above) Admission/Observation Consideration of admission/observation: Escalation of care including admission/observation considered (I considered admission for abdominal pain and hematochezia, see course narrative for further detail) Lab Data MDM Lab Attestation statement: I reviewed the patient's lab results. The CBC is overall unremarkable no evidence of leukocytosis or anemia. CMP is overall unremarkable. Urinalysis is without evidence of infection. Viral testing for COVID-19/influenza/RSV is negative. 01/08/23 18:47 01/08/23 18:47 Labs: Lab Results 01/08/23 01/08/23 01/09/23 Range/Units 18:47 22:49 00:36 WBC 8.5 (4.8-10.8) X10*3/uL RBC 4.70 (4.60-5.80) X10*6/uL Hgb 15.8 (14.0-18.0) g/dl Hct 45.6 (42.0-52.0) % MCV 97.0 (80.0-98.0) fL MCH 33.6 H (27.0-33.0) pg MCHC 34.6 (31.0-36.0) g/dl RDW 12.1 (11.0-16.0) % Plt Count 318 (160-400) X10*3/uL MPV 9.5 (9.4-12.4) fL Immature Gran % (Auto) 0.5 H (0.0-0.4) % Neut % (Auto) 60.4 (45-73) % Lymph % (Auto) 26.6 (20-40) % [place] % (Auto) 10.9 (2-11) % Eos % (Auto) 1.1 (0-4) % Baso % (Auto) 0.5 (0-2) % Lymph # (Auto) 2.3 (1.2-4.9) X10*3/uL [place] # (Auto) 0.9 (0.1-1.2) X10*3/uL Eos # (Auto) 0.1 (0.0-0.4) X10*3/uL Baso # (Auto) 0.0 (0.0-0.2) X10*3/uL Abs Immat Gran (auto) 0.04 H (0.00-0.03) X10*3/uL Absolute Neuts (auto) 5.1 (2.0-8.3) x10*3/uL Absolute Nucleated RBC 0.000 (0.0-0.012) X10*3/uL Nucleated RBC % (auto) 0.0 (0.0-0.2) /100WBC Sodium 139 (135-145) mmol/L Potassium 4.9 (3.3-5.1) mmol/L Chloride 104 (96-108) mmol/L Carbon Dioxide 28 (22-29) mmol/L Anion Gap 12 (12-20) BUN 15 (9-16) mg/dL Creatinine 0.87 (0.5-1.4) mg/dL Estim Creat Clear Calc 95.2 Estimated GFR > 60 Random Glucose 101 (60-115) mg/dL Calcium 10.1 (8.4-10.2) mg/dL Total Bilirubin 0.3 (0.0-1.0) mg/dL Direct Bilirubin 0.1 (0.0-0.5) mg/dL AST 10 (5-37) U/L ALT 8 (0-40) U/L Alkaline Phosphatase 65 (39-117) U/L Total Protein 7.1 (6.5-8.0) g/dL Albumin 4.3 (3.5-5.0) g/dL Urine Color Yellow Urine Appearance Clear Urine pH 6.0 (5.0-9.0) Ur Specific [place] 1.025 (1.005-1.025) Urine Protein Negative (Neg-Trace) mg/dL Urine Glucose (UA) Negative (Negative) mg/dL Urine Ketones Negative (Negative) mg/dL Urine Blood Negative (Negative) Urine Nitrite Negative (Negative) Ur Leukocyte Esterase Negative (Negative) Stool Occult Blood POSITIVE (NEGATIVE) Influenza Type A (PCR) NEGATIVE (Negative) Influenza Type B (PCR) NEGATIVE (Negative) RSV RNA Qual (PCR) NEGATIVE (Negative) SARS-CoV-2 RNA (RT-PCR) NEGATIVE (Negative) Radiology Impression Discussion of test interpretation with radiology: I have reviewed the radiologist's reading. Radiologist Impression: CT/CT abdomen pelvis w IV con IMPRESSION: Thick-walled appearance of the distal sigmoid colon and rectum, suspicious for colitis/proctitis. Questionable additional wall thickening in the proximal ascending colon. Independent Historian Clinical information obtained from an independent historian. History obtained from or confirmed by: Parent (Present at bedside who confirms history) External Record Review External record reviewed: Outpatient record and Prior outpatient labs Prescription Management I considered prescription management with: Antibiotic Medications Administered Discontinued Medications Generic Name Dose Route Start Last Admin Trade Name Freq PRN Reason Stop Dose Admin Sodium Chloride 1,000 mls @ 999 mls/hr 01/08/23 23:30 01/09/23 00:19 Ns IV 01/09/23 00:30 999 mls/hr .Q1H1M HECTOR Administration Iohexol 85 ml 01/08/23 23:55 10/24/23 23:55 Iohexol 350 Mg/Ml 100 Ml Infus..Btl IV 01/08/23 23:56 85 ml ONCE ONE Administration Ondansetron HCl 4 mg 01/08/23 20:31 01/08/23 20:40 Ondansetron Odt 4 Mg Tab.Rapdis TRANSLINGU 01/08/23 20:32 Not Given ONCE ONE Discharge Plan Discharge Clinical Impression: Colitis Patient Disposition: Home, Self-Care Instructions: Colitis (ED) Additional Instructions: As discussed, please complete the entire course of antibiotics as prescribed. Be sure to stay well hydrated, drink clear fluids for the next 2 days, slowly progress your diet. Contact the gastroenterology office at the number provided to arrange for further follow-up. You may also contact your primary care provider to schedule follow-up within 1-3 days. Return back to emergency department with any new or worsening symptoms or concerns. Prescriptions: New ciprofloxacin HCl 500 mg tablet 500 mg PO BID Qty: 14 0RF metronidazole 500 mg tablet 500 mg PO TID 7 Days Qty: 21 0RF No Action docusate sodium [Stool Softener] 100 mg capsule 1 cap PO BID oxycodone 5 mg tablet 1 tab PO TID PRN (Reason: pain) Eliquis DVT-PE Treat 30D Start 5 mg (74 tabs) tablets,dose pack 5 mg PO BID erythromycin 5 mg/gram (0.5 %) ointment 1 appl ophthalmic (eye) DAILY 5 Days Qty: 3.5 0RF Referrals: Bridgett Curry MD [Physician] -
[2023-01-08 18:51] LABS: MANUAL DIFF FLAG NO
[2023-01-08 18:54] LABS: Basophils Percent Auto 0.5 % (0-2); Eosinophils Absolute Auto 0.1 X10*3/uL (0.0-0.4); Eosinophils Percent Auto 1.1 % (0-4); Hematocrit 45.6 % (42.0-52.0); Hemoglobin 15.8 g/dl (14.0-18.0); Imm Gran Abs Auto 0.04 X10*3/uL (0.00-0.03); Imm Gran Pct Auto 0.5 % (0.0-0.4); Lymphocytes Absolute Auto 2.3 X10*3/uL (1.2-4.9); Lymphocytes Percent Auto 26.6 % (20-40); Mean Corpuscular HGB Conc 34.6 g/dl (31.0-36.0); Mean Corpuscular Hemoglobin 33.6 pg (27.0-33.0); Mean Platelet Volume 9.5 fL (9.4-12.4); Monocytes Absolute Auto 0.9 X10*3/uL (0.1-1.2); Monocytes Percent Auto 10.9 % (2-11); Neutrophils Absolute Auto 5.1 x10*3/uL (2.0-8.3); Neutrophils Percent Auto 60.4 % (45-73); Platelet Count 318 X10*3/uL (160-400); Red Cell Distribution Width 12.1 % (11.0-16.0); White Blood Count 8.5 X10*3/uL (4.8-10.8)
[2023-01-08 19:05] LABS: Alanine Aminotransferase 8 U/L (0-40); Albumin Level 4.3 g/dL (3.5-5.0); Alkaline Phosphatase 65 U/L (39-117); Anion Gap 12 (12-20); Aspartate Amino Transferase 10 U/L (5-37); Bilirubin Direct 0.1 mg/dL (0.0-0.5); Bilirubin Total 0.3 mg/dL (0.0-1.0); Blood Urea Nitrogen 15 mg/dL (9-16); Calcium 10.1 mg/dL (8.4-10.2); Carbon Dioxide 28 mmol/L (22-29); Chloride 104 mmol/L (96-108); Creatinine Clr Calc Pharmacy 95.2; Estimated Glomerular Filt Rate > 60; Glucose Random 101 mg/dL (60-115); Potassium 4.9 mmol/L (3.3-5.1); Sodium 139 mmol/L (135-145); Total Protein 7.1 g/dL (6.5-8.0)
[2023-01-08 19:35] LABS: Influenza A PCR NEGATIVE (Negative); Influenza B PCR NEGATIVE (Negative); Resp Syncy Virus RNA Qual PCR NEGATIVE (Negative); SARS COV2 PCR INHOUSE NEGATIVE (Negative)
[2023-01-08 20:37] VITALS: BP 107/71; PULSE 67; RESP 16; TEMP 36.7; O2SAT 99
--- NOTE | 2023-01-08 20:40 | PC.NURSE ---
pt denies sublingual zofran in triage
[2023-01-08 22:51] VITALS: BP 120/75; PULSE 72; RESP 18; TEMP 36.8; O2SAT 99
[2023-01-08 23:02] LABS: Appearance Urine Clear; Color Urine Yellow; Glucose Urine UA Negative (Negative); Leukocyte Esterase Urine Negative (Negative); Nitrite Urine Negative (Negative); Specific Gravity - Urine 1.025 (1.005-1.025); Urine Blood Negative (Negative); Urine Ketones Negative (Negative); Urine Protein Negative (Neg-Trace)
[2023-01-08] MEDS: iohexoL 350 MG/ML 100 ML INFUS..BTL 85 ML IV (23:55)
[2023-01-09] MEDS: 0.9 % Sodium Chloride 1,000 ML 999 ML IV (00:19)
[2023-01-09 00:51] LABS: OBS Int Ctl Valid YES; OBS1 POSITIVE (NEGATIVE)
[2023-01-09 01:46] LABS: CDiff Gene PCR NEGATIVE (Negative)
--- NOTE | 2023-01-09 02:33 | PC.NURSE ---
PT alert and oriented. PT arrived from waiting room with complaints of blood in stool and abdominal pain. Pt has a history of colitis. PT reports 7/10 pain. VSS, IV access in left AC. IV fluids administered. LAbs sent down. Call jose within reach. Plan of care ongoing.
== END 2023-01-09 02:38 | disposition home or self-care (01) ==
PROVIDERS: Nurse Practitioner Family; Emergency Provider Internal Medicine
DX: K52.9 Noninfective gastroenteritis and colitis, unspecified (principal); R10.30 Lower abdominal pain, unspecified; Z20.822 Contact with and (suspected) exposure to COVID-19; Z20.828 Contact with and (suspected) exposure to other viral communicable diseases; Z79.01 Long term (current) use of anticoagulants; Z79.899 Other long term (current) drug therapy
CPT/HCPCS: 0241U; 74177; 80048; 80076; 81003; 82272; 85025; 87493; 99284; Q9967